=== PATIENT | female | born 1975 | race Caucasian/White ===

== ENCOUNTER 2018-04-19 10:46 | Emergency (ER) | END 2018-04-19 13:18 | disposition home or self-care (01) ==

== ENCOUNTER 2018-09-10 14:58 | Emergency (ER) | payer OTHER ==
[~2018-09-10] VITALS: Ht 162.6 cm; Wt 67.0 kg
[~2018-09-10 14:58] MED LIST: FERR27TA; MECL12.574 PO; ONDA4TAB8 PO; PREN1TAB49
[2018-09-10 15:14] VITALS: BP 171/85; PULSE 106; RESP 18; Ht 162.6 cm; Wt 67.0 kg
[2018-09-10] MEDS ORDERED: D-ME473S2 PO (15:22)
[2018-09-10] MEDS ORDERED: NAPH15DR OP (15:22)
[2018-09-10] MEDS ORDERED: IBUP-1542 PO (15:22)
--- NOTE | 2018-09-10 15:25 | ERD ---
ER Documentation Chief Complaint Chief Complaint SORE THROAT WITH COUGH/NAUSEA/VOMITING, - FEVER X 6 DAYS HPI 43-year-old female presents with 5-day history of sore throat, cough, red eyes. She has had a couple episodes of posttussive vomiting, nonbilious nonbloody. Cough is nonproductive. There is no discharge. She denies contact lens use. ROS All systems reviewed and are negative except as per history of present illness. Medications Home Meds Active Scripts Naphazoline Hcl/Phenir Mal (Naphcon-A Eye Drops) 15 Ml Drops, 15 ML OP QID for 7 Days, BOTTLE 1 drop OU 4 times daily x7 days. Prov:THEE WORTHY MD 09/10/18 Ibuprofen* (Motrin*) 600 Mg Tab, 600 MG PO Q6, #15 TAB Prov:THEE WORTHY MD 09/10/18 Dextromethorphan Hb-Promethazine Hcl* (Promethazine DM* Syrup) 473 Ml Syrup, 5 ML PO Q6 PRN for COUGH for 5 Days, ML Prov:THEE WORTHY MD 09/10/18 Ondansetron Hcl* (Zofran*) 4 Mg Tablet, 4 MG PO Q8H PRN for NAUSEA AND/OR VOMITING, #15 TAB Prov:PAVEL JIM MD 04/19/18 Meclizine Hcl* (Antivert*) 12.5 Mg Tab, 12.5 MG PO Q6H PRN for DIZZINESS, #20 TAB Prov:PAVEL JIM MD 04/19/18 Reported Medications Ferrous Sulfate (Iron) 1 Tab Tablet 09/12/10 Vits W-Ca,Fe,Fa(<1MG) () 1 Tab Tablet 09/12/10 Allergies Allergies: Coded Allergies: No Known Drug Allergies (Verified Allergy, Mild, 04/19/18) PMhx/Soc Medical and Surgical Hx: pt denies Medical Hx, pt denies Surgical Hx Hx Alcohol Use: No Hx Substance Use: No Hx Tobacco Use: No Smoking Status: Never smoker FmHx Family History: No diabetes, No coronary disease, No other Physical Exam Vitals Vital Signs Date Temp Pulse Resp B/P (MAP) Pulse Ox O2 O2 Flow FiO2 Time Delivery Rate 09/10/18 98.6 106 18 171/85 96 15:14 (113) Physical Exam Const: No acute distress Head: Atraumatic Eyes: Bilateral scleral redness. Eyes Jerri and extraocular movements intact. No periorbital swelling or proptosis. No discharge. ENT: Normal External Ears, Nose and Mouth. Posterior oropharynx normal. TMs normal. Neck: Full range of motion. No meningismus. Resp: Clear to auscultation bilaterally. Dry cough without rales, wheezing or retractions. Cardio: Regular rate and rhythm, no murmurs Abd: Soft, non tender, non distended. Normal bowel sounds Skin: No petechiae or rashes Back: No midline or flank tenderness Ext: No cyanosis, or edema Neur: Awake and alert Psych: Normal Mood and Affect Procedures/MDM Patient presents with URI symptoms and bilateral conjunctivitis without signs of orbital cellulitis, threats to vision, visual field deficits by history. She likely has a viral URI associated with conjunctivitis. We will treat with Naphcon, Promethazine DM, ibuprofen, primary care follow-up and return precautions. The patient was stable with no new complaints during the ER course. Clinically, there is no current evidence to suggest meningitis, sepsis, acute abdomen, pneumonia, stroke, acute coronary syndrome, pulmonary embolism, aortic dissection or any other emergent condition appearing to require further evaluation or hospitalization. Patient counseled regarding my diagnostic impression and care plan. Prior to discharge all questions answered. Pt agrees with treatment plan and understands strict return precautions. Pt is instructed to follow up with primary care provider within 24-48 hours. Precautionary instructions provided including instructions to return to the ER if not imp roving or for any worsening or changing symptoms or concerns. Patient has no signs or symptoms of visual changes, visual field deficits. There are no signs or symptoms to suggest orbital cellulitis, retinal detachment, optic neuritis, retinal artery ischemia, dendritic lesions, ulcers, threats to vision or additional eye emergencies. Doubt acute glaucoma. Patient will be discharged home with recommendations for primary care and ophthalmology follow-up within the next 1-2 days. They should otherwise return to the ER for persistent or worsening symptoms. Disclaimer: Inadvertent spelling and grammatical errors are likely due to E HR/dictation software use and do not reflect on the overall quality of patient care. Also, please note that the electronic time recorded on this note does not necessarily reflect the actual time of the patient encounter. Departure Diagnosis: Primary Impression: Conjunctivitis Conjunctivitis type: unspecified Laterality: bilateral Qualified Codes: H10.9 - Unspecified conjunctivitis Additional Impression: Sore throat Condition: Stable Patient Instructions: Conjunctivitis, Non-Specific, Uri, Viral, No Abx (Adult) Additional Instructions: Probablamente un virus que dura 2-4 addison. cheque otro vez en el proximo rossana para mas simptomas- vomito, dolor, nayana, problemas con respirando, o con fuentes doctor primario. THEE WORTHY MD September 10, 2018 15:25
== END 2018-09-10 18:26 | disposition home or self-care (01) ==
LOC: E/R 14:58
DX: H10.9 Unspecified conjunctivitis (principal)
CPT/HCPCS: 99282